=== PATIENT | male | born 1990 | race Two or more races ===

== ENCOUNTER 2018-05-30 18:04 | Emergency (ER) | payer SELFPAY ==
[~2018-05-30] VITALS: Ht 182.9 cm; Wt 81.6 kg
[2018-05-30] MEDS ORDERED: EXCEDRIN MIGRA1 EAC1 PO (18:25)
[2018-05-30 18:31] VITALS: BP 119/87
[2018-05-30] MEDS ORDERED: Dexamethasone 4mg/ml vial IM ONE (19:15)
--- NOTE | 2018-05-30 19:15 | Emergency Room Report ---
History of Present Illness General Chief Complaint: Sore Throat Source: Patient Present Illness HPI 27-year-old male presents emergency department complaining of 9 out of 10 in severity sore throat that he describes as burning in nature as well as nasal congestion 3 days. Patient also reports subjective fevers. Patient denies cough he denies shortness of breath, wheezing, neck pain/stiffness. he states that he will on occasion have a 5 out of 10 in severity progressive sinus pressure headache. Denies recent travel or ill contacts. Pt. also reports itchy rash to the right AC area. denies blisters, lesions elsewhere, swelling of the lips or tongue. Pt report pain exacerbated with swallowing/ eating food. Denies ear pain, uncontrollable high fevers, lethargy, irritability, photophobia dehydration, N/V/D. Denies Cp or Palpitations. Denies hx of smoking, asthma or COPD. Allergies: Coded Allergies: No Known Allergies (Unverified , 05/30/18) Patient History Past Medical History: see triage record Past Surgical History: none Pertinent Family History: none Reviewed Nursing Documentation: PMH: Agreed; PSxH: Agreed Nursing Documentation-PMH Past Medical History: No Stated History Review of Systems All Other Systems: negative except mentioned in HPI Physical Exam Vital Signs Date Time Temp Pulse Resp B/P (MAP) Pulse Ox O2 Delivery O2 Flow Rate FiO2 05/30/18 18:21 99.6 102 18 119/87 96 99.7 Sp02 EP Interpretation: reviewed, normal General Appearance: no apparent distress, alert, GCS 15, non-toxic Head: normocephalic, atraumatic Eyes: bilateral eye normal inspection, bilateral eye PERRL ENT: hearing grossly normal, normal voice, TMs + canals normal, uvula midline, nasal congestion, tonsillar swelling, pharyngeal erythema, tonsillar exudate Neck: full range of motion Respiratory: lungs clear, normal breath sounds, speaking full sentences Cardiovascular #1: regular rate, rhythm Musculoskeletal: back normal, gait/station normal, normal range of motion, non- tender Neurologic: alert, oriented x3, responsive, motor strength/tone normal, sensory intact, speech normal, grossly normal Psychiatric: judgement/insight normal Skin: normal color, no rash, warm/dry, well hydrated, rash - erythematous plaque to the right a/c no blisters or vessicles Lymphatic: other Medical Decision Making PA Attestation Dr Newman is my supervising Physician whom patient management has been discussed with. Diagnostic Impression: Primary Impression: Pharyngitis, acute Qualified Codes: J02.0 - Streptococcal pharyngitis Additional Impression: Dermatitis ER Course 27-year-old male presents emergency department complaining of 9 out of 10 in severity sore throat that he describes as burning in nature as well as nasal congestion 3 days. Patient also reports subjective fevers. Patient denies cough he denies shortness of breath, wheezing, neck pain/stiffness. he states that he will on occasion have a 5 out of 10 in severity progressive sinus pressure headache. Denies recent travel or ill contacts. Pt. also reports itchy rash to the right AC area. denies blisters, lesions elsewhere, swelling of the lips or tongue. Pt report pain exacerbated with swallowing/ eating food. Denies ear pain, uncontrollable high fevers, lethargy, irritability, photophobia dehydration, N/V/D. Denies Cp or Palpitations. Denies hx of smoking, asthma or COPD. Ddx considered but are not limited to: pharyngitis, strep, [employer], ludwigs angina, URI Vital signs: are WNL, pt. is afebrile H&PE are most consistent with: pharyngitis presumed strep. ORDERS: None required at this time as the diagnosis is clinical ED INTERVENTIONS: -Decadron 8mg IM. DISCHARGE: At this time pt. is stable for d/c to home. Will provide printed patient care instructions, and any necessary prescriptions. Care plan and follow up instructions have been discussed with the patient prior to discharge. Last Vital Signs Date Time Temp Pulse Resp B/P (MAP) Pulse Ox O2 Delivery O2 Flow Rate FiO2 05/30/18 18:21 99.6 102 18 119/87 96 99.7 Disposition: HOME, SELF-CARE Condition: Stable Scripts Acetaminophen* (TYLENOL EXTRA STRENGTH*) 500 Mg Tablet 500 MG ORAL Q6H, #20 TAB 0 Refills Prov: Dory Jesus 05/30/18 Hydrocortisone (Hydrocortisone Cream 2.5%) Y Cream.appl 1 APPLIC TP BID, #28.3 GM Prov: Dory Jesus 05/30/18 Cetirizine Hcl/Pseudoephedrine (ZYRTEC-D TABLET) 1 Each Tab.er.12h 1 EACH ORAL Q12HR for 7 Days, #14 TAB Prov: Dory Jesus 05/30/18 Lidocaine HCl 2% Viscous (Lidocaine HCl 2% Viscous) 100 Ml Solution 15 ML ORAL QID, #200 ML Prov: Dory Jesus 05/30/18 Amoxicillin/Potassium Clav 875-125* (AUGMENTIN 875-125 TABLET*) 1 Each Tablet 1 TAB ORAL TWICE A DAY for 7 Days, #14 TAB Prov: Dory Jesus 05/30/18 Patient Instructions: Contact Dermatitis, [id number], Pharyngitis, Easy-to- Read Additional Instructions: Take medications as directed. Follow up with a Primary Care Provider in 3-5 days, even if your symptoms have resolved. --Please review list of primary care clinics, if you do not already have a primary care provider Return sooner to ED if new symptoms occur, or current symptoms become worse. - Please note that this Emergency Department Report was dictated using [employer] associate technology software, occasionally this can lead to erroneous entry secondary to interpretation by the dictation equipment. Dory Jesus May 30, 2018 19:15
[2018-05-30] MEDS ORDERED: AUGMENTIN 875-1 EAC1 ORAL (19:17)
[2018-05-30] MEDS ORDERED: TYLENOL EXTRA500 MG ORAL (19:17)
[2018-05-30] MEDS ORDERED: LIDOCAINE VISC100 ML ORAL (19:17)
[2018-05-30] MEDS ORDERED: HYDROCORTISONE30 G2 TP (19:17)
[2018-05-30] MEDS ORDERED: ZYRTEC-D TABLE1 EACH ORAL (19:17)
[2018-05-30 19:36] VITALS: BP 119/87
== END 2018-05-30 19:40 | disposition home or self-care (01) ==
LOC: EMR 19:37
DX: J02.0 Streptococcal pharyngitis (principal)
CPT/HCPCS: 99284; J1100